=== PATIENT | female | born 1945 | race Caucasian/White ===

== ENCOUNTER 2016-05-31 17:26 | Emergency (ER) | payer OTHER ==
--- NOTE | 2016-05-31 18:55 | ED NURSING NOTES ---
Clinical Report - Nurses [facility] [address] [place] [address] 05/31/2016 17:30 Patient: KRISTINE ANDRADE TRIAGE Triage time 1825. Acuity: LEVEL 3. Chief Complaint: SKIN RASH and TENDER AREA. Alert. No acute distress. --18:37 Norma Thomas 18:33 05/31/16. BP: 176/53. HR: 86. RR: 16. O2 saturation: 98%. Temp: 98.4 F. Pain level now 5/10. --18:37 Norma Thomas. Weight: 80.7 kg. Height/Length: 64 inches. BMI: 30.6. --18:33 Norma Thomas. Medications Blood Pressure Pill. --18:35 Norma Thomas. Allergies No Known Drug Allergy. --18:35 Norma Thomas. History Arrived by private vehicle. Historian: patient. Reported as (right breast arm axilla). This started yesterday. It is described as burning and painful. Treatment REINFORCER: None. --18:37 Norma Thomas. PROBLEMS: Hypertension. Breast Cancer. --18:36 Norma Thomas. Interventions ID band on patient. To treatment room. --18:37 Norma Thomas. PHYSICAL ASSESSMENT Ambulatory to room. GENERAL / NEURO / PSYCH: Alert. The patient does not appear to be in acute distress. Oriented X 4. HEENT: Pupils equal, round and reactive to light. Mucous membranes are pink. RESPIRATORY: Respirations not labored. Breath sounds within normal limits. CVS: Capillary refill less than 2 seconds. Pulses within normal limits. GI / : Abdomen nontender. SKIN: Skin rash present. Skin tenderness present. Swelling present. Erythema present. --18:37 Norma Thomas. NURSING PROGRESS NOTES 18:41 05/31/2016 Decadron (Dexamethasone Sodium Phosphate) IM 8 mg given. Given in the right gluteus diego. Allergies verified and confirmed 5 rights. --18:41 Norma Thomas ( Right arm and breast demarcated with pen). --19:23 Norma Thomas. DISPOSITION / DISCHARGE Departure time: 1919. Condition at departure: unchanged and stable. Discharge instructions provided and reviewed with the patient. Reviewed warnings. Reviewed medication(s). Patient verbalized understanding. Written instructions provided in Serbian. The patient was discharged by the nurse practitioner. She was discharged home. She left the Emergency Department ambulatory and via private vehicle. Patient driving. --19:24 Norma Thomas 19:24 05/31/16. BP: 155/56. HR: 83. RR: 18. O2 saturation: 100%. Pain level now 5/10. --19:24 Norma Thomas. Locked/Released at 05/31/2016 19:25 by Norma Thomas,
--- NOTE | 2016-05-31 18:55 | ED CLINICAL REPORT ---
Clinical Report - Physicians/Mid Levels [facility] [address] [place] [address] 05/31/2016 17:30 Patient: KRISTINE ANDRADE Time Seen: 1830; initial patient contact, initial documentation, patient care assumed. Arrived- By private vehicle. Historian- patient. HISTORY OF PRESENT ILLNESS Chief Complaint: SKIN RASH. This started yesterday and is still present. It is described as mildly painful (achy). It is described as burning. It has been located on the trunk and right upper extremity. No cause has been identified. Similar symptoms previously: None. Recent medical care: Not recently seen/assessed. REVIEW OF SYSTEMS No fever, difficulty breathing or joint pain. All systems otherwise negative, except as recorded above. PAST HISTORY See nurses notes. PROBLEMS: Hypertension. Breast Cancer. --18:36 Norma Thomas. SOCIAL HISTORY Never smoker. No alcohol use or drug use. No recent travel. Is a local resident. FAMILY HISTORY Negative. ADDITIONAL NOTES The nursing notes have been reviewed with agreement regarding the chief complaint, HPI, ROS, PMH and patient medications and allergies. PHYSICAL EXAM Vital Signs: 05/31/2016 18:33 BP: 176/53. HR: 86. RR: 16. O2 saturation: 98%. Temp: 98.4 F. Have been reviewed as normal and appear to be correct. Appearance: Alert. Oriented X3. No acute distress. Neck: Neck supple. CVS: Normal heart rate and rhythm. Heart sounds normal. Respiratory: No respiratory distress. Breath sounds normal. Chest nontender. Skin: Skin warm and dry. Abnormal skin color. Rash present. Normal skin turgor. Moderate, well-demarcated, erythematous, urticarial, blanching skin rash with an erythematous base and a cobblestone appearance on the right and left breast, right arm, right elbow and right forearm. Extremities: Normal external inspection. Extremities nontender. Neuro: Oriented X 3. No motor deficit. No sensory deficit. PROGRESS AND PROCEDURES Patient counseled in person regarding the patient's stable condition and diagnosis. 18:55. Differential Diagnosis: Other possible considerations: shingles, dermatitis, allergic reaction, urticaria, fungus. Above considerations are based on history and physical exam. Differential diagnosis was discussed with patient. Disposition: Discharged home in good and unchanged condition (18:55). Condition: good and stable. CLINICAL IMPRESSION Irritative contact dermatitis. INSTRUCTIONS Warnings: GENERAL WARNINGS: Return or contact your physician immediately if your condition worsens or changes unexpectedly, if not improving as expected, or if other problems arise. Specifically return if problem worsens. Prescription Medications: Joseline 180 mg tablets: take 1 orally daily for 10 days. Dispense ten (10). No refills. Prednisone 20 mg: take 3 orally every day for 5 days. Dispense fifteen (15). No refills. Follow-up: Follow up with your doctor in about three days even if well. Call for an appointment. Summary of care provided to patient. Understanding of the discharge instructions verbalized by patient. (Electronically signed by Sandy Craft A.R.N.P. 05/31/2016 20:34)
--- NOTE | 2016-05-31 18:55 | ED NURSING NOTES ---
Clinical Report - Nurses [facility] [address] [place] [address] 05/31/2016 17:30 Patient: KRISTINE ANDRADE TRIAGE Triage time 1825. Acuity: LEVEL 3. Chief Complaint: SKIN RASH and TENDER AREA. Alert. No acute distress. --18:37 Norma Thomas 18:33 05/31/16. BP: 176/53. HR: 86. RR: 16. O2 saturation: 98%. Temp: 98.4 F. Pain level now 5/10. --18:37 Norma Thomas. Weight: 80.7 kg. Height/Length: 64 inches. BMI: 30.6. --18:33 Norma Thomas. Medications Blood Pressure Pill. --18:35 Norma Thomas. Allergies No Known Drug Allergy. --18:35 Norma Thomas. History Arrived by private vehicle. Historian: patient. Reported as (right breast arm axilla). This started yesterday. It is described as burning and painful. Treatment A AUXILIARY: None. --18:37 Norma Thomas. PROBLEMS: Hypertension. Breast Cancer. --18:36 Norma Thomas. Interventions ID band on patient. To treatment room. --18:37 Norma Thomas. PHYSICAL ASSESSMENT Ambulatory to room. GENERAL / NEURO / PSYCH: Alert. The patient does not appear to be in acute distress. Oriented X 4. HEENT: Pupils equal, round and reactive to light. Mucous membranes are pink. RESPIRATORY: Respirations not labored. Breath sounds within normal limits. CVS: Capillary refill less than 2 seconds. Pulses within normal limits. GI / : Abdomen nontender. SKIN: Skin rash present. Skin tenderness present. Swelling present. Erythema present. --18:37 Norma Thomas. NURSING PROGRESS NOTES 18:41 05/31/2016 Decadron (Dexamethasone Sodium Phosphate) IM 8 mg given. Given in the right gluteus diego. Allergies verified and confirmed 5 rights. --18:41 Norma Thomas ( Right arm and breast demarcated with pen). --19:23 Norma Thomas. DISPOSITION / DISCHARGE Departure time: 1919. Condition at departure: unchanged and stable. Discharge instructions provided and reviewed with the patient. Reviewed warnings. Reviewed medication(s). Patient verbalized understanding. Written instructions provided in Armenian. The patient was discharged by the nurse practitioner. She was discharged home. She left the Emergency Department ambulatory and via private vehicle. Patient driving. --19:24 Norma Thomas 19:24 05/31/16. BP: 155/56. HR: 83. RR: 18. O2 saturation: 100%. Pain level now 5/10. --19:24 Norma Thomas. Locked/Released at 05/31/2016 19:25 by Norma Thomas,
--- NOTE | 2016-05-31 18:55 | ED ORDER SUMMARY ---
..... Patient: KRISTINE ANDRADE OrderSheet [facility] VisitID: [id number] [address] [place] [address] 71y, F Registration Date/Time: 05/31/2016 ORDER SHEET Weight: 80.7 kg Allergies: No Known Drug Allergy GENERAL ORDERS: MEDICATION ORDERS: Decadron IM 8 mg (NOW) (18:37 05/31/2016 Dylan A.R.N.P.) (18:41 [facility]) IV FLUIDS: ORDER SHEET NOTES: [Electronically signed by Norma Thomas (19:25 05/31/2016)] [Electronically signed by Sandy Craft A.R.N.P. (20:34 05/31/2016)] [Electronically locked/signed by Norma Thomas (19:25 05/31/2016)]
--- NOTE | 2016-05-31 18:55 | ED CLINICAL REPORT ---
Clinical Report - Physicians/Mid Levels [facility] [address] [place] [address] 05/31/2016 17:30 Patient: KRISTINE ANDRADE Time Seen: 1830; initial patient contact, initial documentation, patient care assumed. Arrived- By private vehicle. Historian- patient. HISTORY OF PRESENT ILLNESS Chief Complaint: SKIN RASH. This started yesterday and is still present. It is described as mildly painful (achy). It is described as burning. It has been located on the trunk and right upper extremity. No cause has been identified. Similar symptoms previously: None. Recent medical care: Not recently seen/assessed. REVIEW OF SYSTEMS No fever, difficulty breathing or joint pain. All systems otherwise negative, except as recorded above. PAST HISTORY See nurses notes. PROBLEMS: Hypertension. Breast Cancer. --18:36 Norma Thomas. SOCIAL HISTORY Never smoker. No alcohol use or drug use. No recent travel. Is a local resident. FAMILY HISTORY Negative. ADDITIONAL NOTES The nursing notes have been reviewed with agreement regarding the chief complaint, HPI, ROS, PMH and patient medications and allergies. PHYSICAL EXAM Vital Signs: 05/31/2016 18:33 BP: 176/53. HR: 86. RR: 16. O2 saturation: 98%. Temp: 98.4 F. Have been reviewed as normal and appear to be correct. Appearance: Alert. Oriented X3. No acute distress. Neck: Neck supple. CVS: Normal heart rate and rhythm. Heart sounds normal. Respiratory: No respiratory distress. Breath sounds normal. Chest nontender. Skin: Skin warm and dry. Abnormal skin color. Rash present. Normal skin turgor. Moderate, well-demarcated, erythematous, urticarial, blanching skin rash with an erythematous base and a cobblestone appearance on the right and left breast, right arm, right elbow and right forearm. Extremities: Normal external inspection. Extremities nontender. Neuro: Oriented X 3. No motor deficit. No sensory deficit. PROGRESS AND PROCEDURES Patient counseled in person regarding the patient's stable condition and diagnosis. 18:55. Differential Diagnosis: Other possible considerations: shingles, dermatitis, allergic reaction, urticaria, fungus. Above considerations are based on history and physical exam. Differential diagnosis was discussed with patient. Disposition: Discharged home in good and unchanged condition (18:55). Condition: good and stable. CLINICAL IMPRESSION Irritative contact dermatitis. INSTRUCTIONS Warnings: GENERAL WARNINGS: Return or contact your physician immediately if your condition worsens or changes unexpectedly, if not improving as expected, or if other problems arise. Specifically return if problem worsens. Prescription Medications: Joseline 180 mg tablets: take 1 orally daily for 10 days. Dispense ten (10). No refills. Prednisone 20 mg: take 3 orally every day for 5 days. Dispense fifteen (15). No refills. Follow-up: Follow up with your doctor in about three days even if well. Call for an appointment. Summary of care provided to patient. Understanding of the discharge instructions verbalized by patient. (Electronically signed by Sandy Craft A.R.N.P. 05/31/2016 20:34)
--- NOTE | 2016-05-31 18:55 | ED ORDER SUMMARY ---
..... Patient: KRISTINE ANDRADE OrderSheet [facility] VisitID: [id number] [address] [place] [address] 71y, F Registration Date/Time: 05/31/2016 ORDER SHEET Weight: 80.7 kg Allergies: No Known Drug Allergy GENERAL ORDERS: MEDICATION ORDERS: Decadron IM 8 mg (NOW) (18:37 05/31/2016 Dylan A.R.N.P.) (18:41 [facility]) IV FLUIDS: ORDER SHEET NOTES: [Electronically signed by Norma Thomas (19:25 05/31/2016)] [Electronically signed by Sandy Craft A.R.N.P. (20:34 05/31/2016)] [Electronically locked/signed by Norma Thomas (19:25 05/31/2016)]
--- NOTE | 2016-05-31 20:34 | ED DISCHARGE INSTRUCTIONS ---
Patient: KRISTINE ANDRADE General Instructions [facility] VisitID: [id number] [place] [address] 71y, F Registration Date/Time: 05/31/2016 Irritative contact dermatitis. INSTRUCTIONS Warnings: GENERAL WARNINGS: Return or contact your physician immediately if your condition worsens or changes unexpectedly, if not improving as expected, or if other problems arise. Specifically return if problem worsens. Prescription Medications: Joseline 180 mg tablets: take 1 orally daily for 10 days. Dispense ten (10). No refills. Prednisone 20 mg: take 3 orally every day for 5 days. Dispense fifteen (15). No refills. Follow-up: Follow up with your doctor in about three days even if well. Call for an appointment. Summary of care provided to patient. Understanding of the discharge instructions verbalized by patient. ADDITIONAL INFORMATION Dermatitis (Non-Specific) Dermatitis is an inflammation of the skin. The exact cause of your rash is not certain. However, this rash does not appear to be an infection or contagious illness. Taking care of the rash at home should help relieve your symptoms. Home Care: Keep the areas of rash clean by washing it daily. This also helps to keep the skin moist. Use a neutral pH soap such as Dove or Lever 2000. Apply a moisturizing lotion after bathing to prevent dry skin. Avoid skin irritants (wool or silk clothing, grease, oils, some medicines, harsh soaps, and detergents). Wear absorbent, soft fabrics next to the skin rather than rough or scratchy materials. Unless another medicine was prescribed, you may use Hydrocortisone cream (which you can get without a prescription) to reduce the inflammation. Follow Up: Make an appointment with your doctor in the next 1 to 2 weeks if your symptoms do not improve with the above measures. Get Prompt Medical Attention if any of the following occur: Increasing area of redness or pain in the skin Yellow crusts or drainage from the rash Joint pain New rash that appears in other areas of the body Fever of 100.4F (38C) or higher, or as directed by your healthcare provider Fexofenadine Hydrochloride Oral tablet What is this medicine? FEXOFENADINE (fex oh FEN a johanna) is an antihistamine. This medicine is used to treat or prevent symptoms of allergies. It is also used to help reduce itchy skin rash and hives. How should I use this medicine? Take this medicine by mouth with a full glass of water. Follow the directions on the prescription label. You may take this medicine with food or on an empty stomach. Take your medicine at regular intervals. Do not take it more often than directed. You may need to take this medicine for several days before your symptoms improve. Talk to your netsuite consultant regarding the use of this medicine in children. While this drug may be prescribed for children as young as 6 years old for selected conditions, precautions do apply. What side effects may I notice from receiving this medicine? Side effects that you should report to your doctor or health wound care nurse as soon as possible: allergic reactions like skin rash, itching or hives, swelling of the face, lips, or tongue breathing problems chest pain fast heartbeat infection or fever Side effects that usually do not require medical attention (report to your doctor or health wound care nurse if they continue or are bothersome): cough drowsiness dry or irritated nose, mouth, or throat headache menstrual changes pain stomach upset, nausea What may interact with this medicine? antacids erythromycin grapefruit, apple, or orange juice ketoconazole magnesium-containing products What if I miss a dose? If you miss a dose, take it as soon as you can. If it is almost time for your next dose, take only that dose. Do not take double or extra doses. Where should I keep my medicine? Keep out of the reach of children. Store at room temperature between 20 and 25 degrees C (68 and 77degrees F). Protect from moisture. Throw away any unused medicine after the expiration date. What should I tell my health care provider before I take this medicine? They need to know if you have any of these conditions: kidney disease an unusual or allergic reaction to fexofenadine, terfenadine, other medicines, foods, dyes, or preservatives or trying to get breast-feeding What should I watch for while using this medicine? Visit your doctor or health wound care nurse for regular checks on your health. Tell your doctor or healthcare professional if your symptoms do not start to get better or if they get worse. Prednisone Oral tablet What is this medicine? PREDNISONE (PRED ni sone) is a corticosteroid. It is commonly used to treat inflammation of the skin, joints, lungs, and other organs. Common conditions treated include asthma, allergies, and arthritis. It is also used for other conditions, such as blood disorders and diseases of the adrenal glands. How should I use this medicine? Take this medicine by mouth with a glass of water. Follow the directions on the prescription label. Take this medicine with food. If you are taking this medicine once a day, take it in the morning. Do not take more medicine than you are told to take. Do not suddenly stop taking your medicine because you may develop a severe reaction. Your doctor will tell you how much medicine to take. If your doctor wants you to stop the medicine, the dose may be slowly lowered over time to avoid any side effects. Talk to your netsuite consultant regarding the use of this medicine in children. Special care may be needed. What side effects may I notice from receiving this medicine? Side effects that you should report to your doctor or health wound care nurse as soon as possible: allergic reactions like skin rash, itching or hives, swelling of the face, lips, or tongue changes in emotions or moods changes in vision depressed mood eye pain fever or chills, cough, sore throat, pain or difficulty passing urine increased thirst swelling of ankles, feet Side effects that usually do not require medical attention (report to your doctor or health wound care nurse if they continue or are bothersome): confusion, excitement, restlessness headache nausea, vomiting skin problems, acne, thin and shiny skin trouble sleeping weight gain What may interact with this medicine? Do not take this medicine with any of the following medications: metyrapone mifepristone This medicine may also interact with the following medications: aminoglutethimide amphotericin B aspirin and aspirin-like medicines barbiturates certain medicines for diabetes, like glipizide or glyburide cholestyramine cholinesterase inhibitors cyclosporine digoxin diuretics ephedrine female hormones, like estrogens and control pills isoniazid ketoconazole NSAIDS, medicines for pain and inflammation, like ibuprofen or naproxen phenytoin rifampin toxoids vaccines warfarin What if I miss a dose? If you miss a dose, take it as soon as you can. If it is almost time for your next dose, talk to your doctor or health wound care nurse. You may need to miss a dose or take an extra dose. Do not take double or extra doses without advice. Where should I keep my medicine? Keep out of the reach of children. Store at room temperature between 15 and 30 degrees C (59 and 86 degrees F). Protect from light. Keep container tightly closed. Throw away any unused medicine after the expiration date. What should I tell my health care provider before I take this medicine? They need to know if you have any of these conditions: Tess's syndrome diabetes glaucoma heart disease high blood pressure infection (especially a virus infection such as chickenpox, cold sores, or herpes) kidney disease liver disease mental illness myasthenia gravis osteoporosis seizures stomach or intestine problems thyroid disease an unusual or allergic reaction to lactose, prednisone, other medicines, foods, dyes, or preservatives or trying to get breast-feeding What should I watch for while using this medicine? Visit your doctor or health wound care nurse for regular checks on your progress. If you are taking this medicine over a prolonged period, carry an identification card with your name and address, the type and dose of your medicine, and your doctor's name and address. This medicine may increase your risk of getting an infection. Tell your doctor or health wound care nurse if you are around anyone with measles or chickenpox, or if you develop sores or blisters that do not heal properly. If you are going to have surgery, tell your doctor or health wound care nurse that you have taken this medicine within the last twelve months. Ask your doctor or health wound care nurse about your diet. You may need to lower the amount of salt you eat. This medicine may affect blood sugar levels. If you have diabetes, check with your doctor or health wound care nurse before you change your diet or the dose of your diabetic medicine. You have been given the following additional information: Dermatitis, Non-Specific Fexofenadine Hydrochloride Oral tablet Prednisone Oral tablet (Electronically signed by Sandy Craft A.R.N.P. 05/31/2016 20:34)
--- NOTE | 2016-05-31 20:34 | ED DISCHARGE INSTRUCTIONS ---
Patient: KRISTINE ANDRADE General Instructions [facility] VisitID: [id number] [place] [address] 71y, F Registration Date/Time: 05/31/2016 Irritative contact dermatitis. INSTRUCTIONS Warnings: GENERAL WARNINGS: Return or contact your physician immediately if your condition worsens or changes unexpectedly, if not improving as expected, or if other problems arise. Specifically return if problem worsens. Prescription Medications: Joseline 180 mg tablets: take 1 orally daily for 10 days. Dispense ten (10). No refills. Prednisone 20 mg: take 3 orally every day for 5 days. Dispense fifteen (15). No refills. Follow-up: Follow up with your doctor in about three days even if well. Call for an appointment. Summary of care provided to patient. Understanding of the discharge instructions verbalized by patient. ADDITIONAL INFORMATION Dermatitis (Non-Specific) Dermatitis is an inflammation of the skin. The exact cause of your rash is not certain. However, this rash does not appear to be an infection or contagious illness. Taking care of the rash at home should help relieve your symptoms. Home Care: Keep the areas of rash clean by washing it daily. This also helps to keep the skin moist. Use a neutral pH soap such as Dove or Lever 2000. Apply a moisturizing lotion after bathing to prevent dry skin. Avoid skin irritants (wool or silk clothing, grease, oils, some medicines, harsh soaps, and detergents). Wear absorbent, soft fabrics next to the skin rather than rough or scratchy materials. Unless another medicine was prescribed, you may use Hydrocortisone cream (which you can get without a prescription) to reduce the inflammation. Follow Up: Make an appointment with your doctor in the next 1 to 2 weeks if your symptoms do not improve with the above measures. Get Prompt Medical Attention if any of the following occur: Increasing area of redness or pain in the skin Yellow crusts or drainage from the rash Joint pain New rash that appears in other areas of the body Fever of 100.4F (38C) or higher, or as directed by your healthcare provider Fexofenadine Hydrochloride Oral tablet What is this medicine? FEXOFENADINE (fex oh FEN a johanna) is an antihistamine. This medicine is used to treat or prevent symptoms of allergies. It is also used to help reduce itchy skin rash and hives. How should I use this medicine? Take this medicine by mouth with a full glass of water. Follow the directions on the prescription label. You may take this medicine with food or on an empty stomach. Take your medicine at regular intervals. Do not take it more often than directed. You may need to take this medicine for several days before your symptoms improve. Talk to your shearer operator regarding the use of this medicine in children. While this drug may be prescribed for children as young as 6 years old for selected conditions, precautions do apply. What side effects may I notice from receiving this medicine? Side effects that you should report to your doctor or health anesthesiologist and critical care as soon as possible: allergic reactions like skin rash, itching or hives, swelling of the face, lips, or tongue breathing problems chest pain fast heartbeat infection or fever Side effects that usually do not require medical attention (report to your doctor or health anesthesiologist and critical care if they continue or are bothersome): cough drowsiness dry or irritated nose, mouth, or throat headache menstrual changes pain stomach upset, nausea What may interact with this medicine? antacids erythromycin grapefruit, apple, or orange juice ketoconazole magnesium-containing products What if I miss a dose? If you miss a dose, take it as soon as you can. If it is almost time for your next dose, take only that dose. Do not take double or extra doses. Where should I keep my medicine? Keep out of the reach of children. Store at room temperature between 20 and 25 degrees C (68 and 77degrees F). Protect from moisture. Throw away any unused medicine after the expiration date. What should I tell my health care provider before I take this medicine? They need to know if you have any of these conditions: kidney disease an unusual or allergic reaction to fexofenadine, terfenadine, other medicines, foods, dyes, or preservatives or trying to get breast-feeding What should I watch for while using this medicine? Visit your doctor or health anesthesiologist and critical care for regular checks on your health. Tell your doctor or healthcare professional if your symptoms do not start to get better or if they get worse. Prednisone Oral tablet What is this medicine? PREDNISONE (PRED ni sone) is a corticosteroid. It is commonly used to treat inflammation of the skin, joints, lungs, and other organs. Common conditions treated include asthma, allergies, and arthritis. It is also used for other conditions, such as blood disorders and diseases of the adrenal glands. How should I use this medicine? Take this medicine by mouth with a glass of water. Follow the directions on the prescription label. Take this medicine with food. If you are taking this medicine once a day, take it in the morning. Do not take more medicine than you are told to take. Do not suddenly stop taking your medicine because you may develop a severe reaction. Your doctor will tell you how much medicine to take. If your doctor wants you to stop the medicine, the dose may be slowly lowered over time to avoid any side effects. Talk to your shearer operator regarding the use of this medicine in children. Special care may be needed. What side effects may I notice from receiving this medicine? Side effects that you should report to your doctor or health anesthesiologist and critical care as soon as possible: allergic reactions like skin rash, itching or hives, swelling of the face, lips, or tongue changes in emotions or moods changes in vision depressed mood eye pain fever or chills, cough, sore throat, pain or difficulty passing urine increased thirst swelling of ankles, feet Side effects that usually do not require medical attention (report to your doctor or health anesthesiologist and critical care if they continue or are bothersome): confusion, excitement, restlessness headache nausea, vomiting skin problems, acne, thin and shiny skin trouble sleeping weight gain What may interact with this medicine? Do not take this medicine with any of the following medications: metyrapone mifepristone This medicine may also interact with the following medications: aminoglutethimide amphotericin B aspirin and aspirin-like medicines barbiturates certain medicines for diabetes, like glipizide or glyburide cholestyramine cholinesterase inhibitors cyclosporine digoxin diuretics ephedrine female hormones, like estrogens and control pills isoniazid ketoconazole NSAIDS, medicines for pain and inflammation, like ibuprofen or naproxen phenytoin rifampin toxoids vaccines warfarin What if I miss a dose? If you miss a dose, take it as soon as you can. If it is almost time for your next dose, talk to your doctor or health anesthesiologist and critical care. You may need to miss a dose or take an extra dose. Do not take double or extra doses without advice. Where should I keep my medicine? Keep out of the reach of children. Store at room temperature between 15 and 30 degrees C (59 and 86 degrees F). Protect from light. Keep container tightly closed. Throw away any unused medicine after the expiration date. What should I tell my health care provider before I take this medicine? They need to know if you have any of these conditions: Tess's syndrome diabetes glaucoma heart disease high blood pressure infection (especially a virus infection such as chickenpox, cold sores, or herpes) kidney disease liver disease mental illness myasthenia gravis osteoporosis seizures stomach or intestine problems thyroid disease an unusual or allergic reaction to lactose, prednisone, other medicines, foods, dyes, or preservatives or trying to get breast-feeding What should I watch for while using this medicine? Visit your doctor or health anesthesiologist and critical care for regular checks on your progress. If you are taking this medicine over a prolonged period, carry an identification card with your name and address, the type and dose of your medicine, and your doctor's name and address. This medicine may increase your risk of getting an infection. Tell your doctor or health anesthesiologist and critical care if you are around anyone with measles or chickenpox, or if you develop sores or blisters that do not heal properly. If you are going to have surgery, tell your doctor or health anesthesiologist and critical care that you have taken this medicine within the last twelve months. Ask your doctor or health anesthesiologist and critical care about your diet. You may need to lower the amount of salt you eat. This medicine may affect blood sugar levels. If you have diabetes, check with your doctor or health anesthesiologist and critical care before you change your diet or the dose of your diabetic medicine. You have been given the following additional information: Dermatitis, Non-Specific Fexofenadine Hydrochloride Oral tablet Prednisone Oral tablet (Electronically signed by Sandy Craft A.R.N.P. 05/31/2016 20:34)
--- NOTE | 2016-05-31 20:34 | ED MED RECONCILIATION SUMMARY ---
Patient: KRISTINE ANDRADE Medication Reconciliation Report [facility] VisitID: [id number] [address] [place] [address] 71y, F Registration Date/Time: 05/31/2016 Weight: 80.7 kg Height/Length: 64 in. BMI: 30.6 ALLERGIES: No Known Drug Allergy The patient's Home Medications are listed below: THE FOLLOWING MEDICATIONS NEED TO BE RECONCILED: Blood Pressure Pill The source(s) of the original Home Medication information: Not obtained. The following Medications were given to the patient in the Emergency Department: Decadron [IM] IM 8 mg, administered: 05/31/2016 6:41:00 PM The following Medications were prescribed to the patient: Joseline 180 mg tablets: take 1 orally daily for 10 days. Dispense ten (10). No refills. -- Sandy Craft A.R.N.P. Prednisone 20 mg: take 3 orally every day for 5 days. Dispense fifteen (15). No refills. -- Sandy Craft, A.R.N.P.
--- NOTE | 2016-05-31 20:34 | ED MAR SUMMARY ---
..... Medication Administration Record [facility] [address] [place] [address] Patient: KRISTINE ANDRADE Visit ID: [id number] 71y, F Weight: 80.7 kg Height/Length: 64 in BMI: 30.6 ALLERGIES: No Known Drug Allergy Given 18:41 05/31/2016 Norma Thomas, Medication Administered: DECADRON [IM] (DEXAMETHASONE SODIUM PHOSPHATE), Dose: 8 mg IM. Medication Ordered: Decadron IM 8 mg (NOW).
--- NOTE | 2016-05-31 20:34 | ED MED RECONCILIATION SUMMARY ---
Patient: KRISTINE ANDRADE Medication Reconciliation Report [facility] VisitID: [id number] [address] [place] [address] 71y, F Registration Date/Time: 05/31/2016 Weight: 80.7 kg Height/Length: 64 in. BMI: 30.6 ALLERGIES: No Known Drug Allergy The patient's Home Medications are listed below: THE FOLLOWING MEDICATIONS NEED TO BE RECONCILED: Blood Pressure Pill The source(s) of the original Home Medication information: Not obtained. The following Medications were given to the patient in the Emergency Department: Decadron [IM] IM 8 mg, administered: 05/31/2016 6:41:00 PM The following Medications were prescribed to the patient: Joseline 180 mg tablets: take 1 orally daily for 10 days. Dispense ten (10). No refills. -- Sandy Craft A.R.N.P. Prednisone 20 mg: take 3 orally every day for 5 days. Dispense fifteen (15). No refills. -- Sandy Craft, A.R.N.P.
--- NOTE | 2016-05-31 20:34 | ED MAR SUMMARY ---
..... Medication Administration Record [facility] [address] [place] [address] Patient: KRISTINE ANDRADE Visit ID: [id number] 71y, F Weight: 80.7 kg Height/Length: 64 in BMI: 30.6 ALLERGIES: No Known Drug Allergy Given 18:41 05/31/2016 Norma Thomas, Medication Administered: DECADRON [IM] (DEXAMETHASONE SODIUM PHOSPHATE), Dose: 8 mg IM. Medication Ordered: Decadron IM 8 mg (NOW).
== END 2016-05-31 19:20 | disposition home or self-care (01) ==
LOC: ED SRH 17:26
DX: L24.9 Irritant contact dermatitis, unspecified cause (principal); I10 Essential (primary) hypertension